=== PATIENT | male | born 1980 | race African-American/Black ===

== ENCOUNTER 2020-05-18 14:53 | Emergency (ER) | payer OTHER ==
[~2020-05-18] VITALS: Ht 185.4 cm; Wt 104.3 kg
[2020-05-18 15:40] LABS: INFLUENZA A ANTIGEN Negative (Negative); INFLUENZA B ANTIGEN Negative (Negative)
[2020-05-18] MEDS ORDERED: PROMETHAZI6.25 MG/5 PO (15:57)
[2020-05-18 16:21] VITALS: BP 142/90
== END 2020-05-18 16:22 | disposition home or self-care (01) ==
LOC: M.ERS 14:53
PROVIDERS: Physician Assistant
DX: J06.9 Acute upper respiratory infection, unspecified (principal); Z20.828 Contact with and (suspected) exposure to other viral communicable diseases; J45.909 Unspecified asthma, uncomplicated

== ENCOUNTER 2021-06-29 08:32 | Emergency (ER) | payer OTHER ==
[~2021-06-29] VITALS: Ht 185.4 cm; Wt 106.6 kg
[~2021-06-29 08:32] MED LIST: PROMETHAZI6.25 MG/5 PO
[2021-06-29] MEDS ORDERED: HYDROCODON-ACE1 EAC7 PO (09:11)
[2021-06-29] MEDS ORDERED: CEPHALEXIN500 MG PO (09:11)
[2021-06-29 09:33] VITALS: BP 141/99
== END 2021-06-29 09:34 | disposition home or self-care (01) ==
LOC: M.ERS 08:32
DX: T33.531A Superficial frostbite of right finger(s), initial encounter (principal); J45.909 Unspecified asthma, uncomplicated; X31.XXXA Exposure to excessive natural cold, initial encounter; Y93.89 Activity, other specified; Y92.89 Other specified places as the place of occurrence of the external cause; Y99.0 Civilian activity done for income or pay

== ENCOUNTER 2021-07-10 10:12 | Emergency (ER) | payer OTHER ==
[~2021-07-10] VITALS: Ht 185.4 cm; Wt 106.6 kg
[~2021-07-10 10:12] MED LIST changes: +CEPHALEXIN500 MG PO; +HYDROCODON-ACE1 EAC7 PO
[2021-07-10 11:22] VITALS: BP 144/79
== END 2021-07-10 11:23 | disposition home or self-care (01) ==
LOC: M.ERS 10:12
DX: R51.9 Headache, unspecified (principal); Z20.822 Contact with and (suspected) exposure to COVID-19; J45.909 Unspecified asthma, uncomplicated

== ENCOUNTER 2021-07-18 20:00 | Emergency (ER) | payer OTHER ==
[~2021-07-18] VITALS: Ht 185.4 cm; Wt 106.6 kg
[2021-07-18] MEDS ORDERED: PROAIR HFA8.5 GM INH (20:18)
[2021-07-18] MEDS ORDERED: SYMBICORT80 MCG/4.1 INH (20:18)
[2021-07-18 21:03] LABS: INFLUENZA A ANTIGEN Negative (Negative); INFLUENZA B ANTIGEN Negative (Negative)
[2021-07-18 22:54] LABS: ABSOLUTE BASOPHILS 0.1 thou/uL (0.0-0.2); ABSOLUTE EOSINOPHILS 0.1 thou/uL (0.0-0.7); ABSOLUTE LYMPHOCYTES 3.1 thou/uL (0.8-5.3); ABSOLUTE MONOCYTES 0.7 thou/uL (0.0-1.2); ABSOLUTE NEUTROPHILS 3.3 thou/uL (1.6-8.1); BASOPHILS 0.9 %; EOSINOPHILS 1.7 %; HEMATOCRIT 46.4 % (42.0-52.0); HEMOGLOBIN 15.5 gm/dL (14.0-18.0); LYMPHOCYTES 42.4 %; MCH 31.2 pg (26.0-34.0); MCHC 33.4 g/dL (28.0-37.0); MCV 93.5 fL (80.0-100.0); MPV 7.2 fl. (7.2-11.1); NUCLEATED RBCS 0 /100WBC; PLATELET COUNT* 243 thou/uL (150-400); RBC 4.96 mil/uL (4.50-6.00); RDW-CV 13.4 % (10.5-14.5); WBC 7.4 thou/uL (4.0-11.0)
[2021-07-18 22:59] LABS: POTASSIUM 3.5 mmol/L (3.5-5.1)
[2021-07-18 23:04] LABS: ALBUMIN 3.6 g/dL (3.4-5.0); TOTAL BILIRUBIN 0.4 mg/dL (<0.1-1.0)
[2021-07-19] MEDS ORDERED: PROMETH-CODEIN 65 ML PO (00:47)
[2021-07-19] MEDS ORDERED: IPRAT-ALBUT 0.5-3 ML INH (00:47)
[2021-07-19] MEDS ORDERED: PREDNISONE50 MG PO (00:47)
[2021-07-19] MEDS ORDERED: NEBULIZER MISCELL (01:05)
[2021-07-19 01:26] VITALS: BP 131/78
--- NOTE | 2021-07-19 11:43 | EKG ---
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1980 Requested By: Subhash Walton Order Number: [id number] MD: Paco Morris Measurements Intervals [place] Rate: 82 P: 18 TN: 153 QRS: 22 QRSD: 85 T: 21 QT: 346 QTc: 404 Interpretive Statements Sinus rhythm ST elev, probable normal early repol pattern Baseline wander in lead(s) II,III,aVF,V2 No previous ECG available for comparison Electronically Signed On 07-19-2021 11:43:40 [employer] PLANT OPERATOR by Paco Morris [email or web address] <ELECTRONICALLY SIGNED> By: Pcao Morris MD, FACC 07/19/21 1143 07 07 Paco Morris MD, FAC /EPI
--- NOTE | 2021-07-19 11:48 | EKG ---
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
== END 2021-07-19 01:26 | disposition home or self-care (01) ==
LOC: M.ERS 20:00
PROVIDERS: Physician Assistant
DX: J45.901 Unspecified asthma with (acute) exacerbation (principal); Z20.822 Contact with and (suspected) exposure to COVID-19; J06.9 Acute upper respiratory infection, unspecified; Z79.899 Other long term (current) drug therapy